=== PATIENT | female | born 1955 | race Two or more races ===

== ENCOUNTER 2016-09-28 13:51 | Emergency (ER) | payer MEDICARE, MEDICAID ==
[~2016-09-28] VITALS: Ht 160 cm; Wt 71.7 kg
[~2016-09-28 13:51] MED LIST: ASPIRIN81 MG ORAL; ATENOLOL25 MG ORAL; CILOSTAZOL100 MG PO; CIPRO500 MG PO; CRESTOR40 MG ORAL; FOSAMAX70 MG ORAL; INVEGA6 MG PO; LEVOTHYROXINE100 MCG ORAL; LISINOPRIL2.5 MG ORAL; LYRICA50 MG ORAL; NOVOLOG100 UNIT/3 SUBQ; OMEPRAZOLE20 M2 ORAL; PAMELOR25 MG ORAL; SERTRALINE HCL25 MG ORAL; TAMIFLU75 MG ORAL; TRIFLUOPERAZINE5 MG PO; VENLAFAXINE HCL75 MG ORAL; XANAX1 MG ORAL; compression stocking
[2016-09-28] MEDS ORDERED: Tylenol #3 tab (300mg/30mg) ORAL ONE (15:15)
[2016-09-28] MEDS ORDERED: ACETAMINOPHEN-1 EAC1 ORAL (15:40)
[2016-09-28 15:43] VITALS: BP 119/70
--- NOTE | 2016-09-28 15:55 | Emergency Room Report ---
History of Present Illness General Chief Complaint: Upper Extremity Injury Source: Patient Present Illness HPI 60-year-old female presents to ED complaining of left wrist pain and swelling. States 2 days ago she had a mechanical trip and fall where she landed on her outstretched left hand. Denies any other injuries. Notes pain and swelling to the left wrist since. 10 out of 10, throbbing, nonradiating. No other aggravating relieving factors. Denies any other associated symptoms Allergies: Coded Allergies: No Known Allergies (Unverified , 04/23/14) Patient History Past Medical History: DM, CVA/TIA Past Surgical History: none Pertinent Family History: none Social History: Denies: alcohol use, drug use, smoking Now: No Immunizations: UTD Reviewed Nursing Documentation: PMH: Agreed, PSxH: Agreed Nursing Documentation-PMH Hx Cardiac Problems: Yes - High cholesterol Hx Hypertension: Yes Hx Pacemaker: No Hx Asthma: No Hx COPD: No Hx Diabetes: Yes Hx Cancer: No Hx Cerebrovascular Accident: Yes - TIA 2004 & 2009 Hx Seizures: No Review of Systems All Other Systems: negative except mentioned in HPI Physical Exam Vital Signs Date Time Temp Pulse Resp B/P Pulse Ox O2 Delivery O2 Flow Rate FiO2 09/28/16 14:02 98.2 122 15 92/51 99 Room Air Sp02 EP Interpretation: reviewed, normal General Appearance: no apparent distress, alert, GCS 15, non-toxic Head: normocephalic Eyes: bilateral eye PERRL, bilateral eye normal inspection ENT: normal ENT inspection Neck: normal inspection Respiratory: normal inspection Cardiovascular #1: normal inspection Gastrointestinal: normal inspection Rectal: deferred Genitourinary: no CVA tenderness Musculoskeletal: swelling - L wrist. TTP Neurologic: alert, oriented x3, responsive, motor strength/tone normal, sensory intact, speech normal Psychiatric: normal inspection Skin: normal inspection Lymphatic: normal inspection Procedures Splinting Splinting : Consent: Verbal Pre-Made Type: velcro Splint: thumb spica Pre-Proc Neuro Vasc Exam: normal Post-Proc Neuro Vasc Exam: normal Patient Tolerated: Well Complications: None Medical Decision Making Diagnostic Impression: Primary Impression: Hand fracture, left Qualified Codes: S62.92XA - Unspecified fracture of left wrist and hand, initial encounter for closed fracture ER Course [facility] 60-year-old F presents to ED complaining of L hand pain s/p fall Differential diagnoses include: Fracture, dislocation, sprain, contusion Clinical course Patient placed on stretcher. After initial history and physical, I ordered pain medications and Xrays of L hand, wrist Xrays prelim read shows fx trapezium. no wrist fx. no dislocation placed in thumb spica. on reassessment pain is improved Diagnosis - hand fracture Stable and discharged to home with prescription for Tylenol #3. apply ice, keep elevated. Followup with PMD. Return to ED if symptoms recur or worsen Other X-Ray Diagnostic Results X-Ray ordered: L hand, L wrist # of Views/Limited Vs Complete: 2 View, 3 View EP Interpretation: Yes Interpretation: no dislocation, other - fracture trapezium L hand. L wrist - no fx, no dislocation, no soft tissue swelling Indication: Swelling Impression: Other - fracture Interpreting ER Provider: Pablo Torres MD Last Vital Signs Date Time Temp Pulse Resp B/P Pulse Ox O2 Delivery O2 Flow Rate FiO2 09/28/16 15:43 97.8 106 14 119/70 96 Room Air Status: improved Disposition: HOME, SELF-CARE Condition: Stable Scripts Acetaminophen With Codeine (T#3) (TYLENOL #3 TAB*) Y Tab 1 TAB ORAL Q8H Y for For Pain, #20 TAB Prov: PABLO TORRES M.D. 09/28/16 Patient Instructions: Wrist Fracture, [id number] PABLO TORRES M.D. Sep 28, 2016 15:55
--- NOTE | 2016-09-28 17:44 | Diagnostic Imaging Report ---
Indication: PAIN Technique: 3 views hand Comparison: none Findings: No acute fractures. No dislocations. The joint spaces are preserved. A lucency with surrounding sclerotic rim is seen within the distal ulna. This is well-defined. There are degenerative changes of the lateral intercarpal joint Impression: No acute bony trauma Well-defined lucency with surrounding sclerotic rim in the distal ulna, presumably benign Degenerative changes of the lateral intercarpal joint
== END 2016-09-28 15:43 | disposition home or self-care (01) ==
LOC: EMR 14:13
DX: S62.92XA Unspecified fracture of left hand, initial encounter for closed fracture (principal); E11.9 Type 2 diabetes mellitus without complications; I10 Essential (primary) hypertension; E78.00 Pure hypercholesterolemia, unspecified; Z86.73 Personal history of transient ischemic attack (TIA), and cerebral infarction without residual deficits; W01.0XXA Fall on same level from slipping, tripping and stumbling without subsequent striking against object, initial encounter; Y92.9 Unspecified place or not applicable
CPT/HCPCS: 29280; 99283

== ENCOUNTER 2016-10-01 12:26 | Emergency (ER) | payer MEDICARE, MEDICAID ==
[~2016-10-01] VITALS: Ht 167.6 cm; Wt 63.5 kg
[~2016-10-01 12:26] MED LIST changes: +ACETAMINOPHEN-1 EAC1 ORAL
[2016-10-01 12:46] VITALS: BP 102/60
[2016-10-01 13:31] LABS: BASOPHILS % (AUTO) 1.1 % (0.0-2.0); EOSINOPHILS % (AUTO) 1.4 % (0.0-3.0); LYMPHOCYTES % (AUTO) 25.5 % (20.0-45.0); MEAN CORPUSCULAR HEMOGLOBIN 29.6 PG (27.0-31.0); MEAN CORPUSCULAR HGB CONC 32.3 G/DL (32.0-36.0); MEAN CORPUSCULAR VOLUME 92 FL (80-99); MEAN PLATELET VOLUME 6.5 FL (6.5-10.1); MONOCYTES % (AUTO) 5.5 % (1.0-10.0); NEUTROPHILS % (AUTO) 66.6 % (45.0-75.0); PLATELET COUNT 272 K/UL (150-450); RED BLOOD COUNT 3.76 M/UL (4.20-5.40); RED CELL DISTRIBUTION WIDTH 13.1 % (11.6-14.8)
[2016-10-01 13:43] LABS: INR 0.9 (0.9-1.1); PROTHROMBIN TIME 9.4 SEC (9.30-11.50)
[2016-10-01 13:48] LABS: CALCIUM 10.3 mg/dL (8.6-10.2); CREATININE 1.2 mg/dL (0.5-0.9); GLOMERULAR FILTRATION RATE 45.9 mL/min (>60); POTASSIUM 4.1 mEQ/L (3.4-4.9); TOTAL PROTEIN 7.2 g/dL (6.6-8.7)
[2016-10-01 14:04] LABS: APPEARANCE,URINE CLEAR; KETONES,URINE NEGATIVE (NEGATIVE); LEUKOCYTE ESTERASE ,URINE NEGATIVE (NEGATIVE); NITRITE,URINE NEGATIVE (NEGATIVE); PH,URINE 6 (4.5-8.0); PROTEIN,URINE NEGATIVE (NEGATIVE); UROBILINOGEN,URINE NORMAL MG/DL (0.0-1.0)
[2016-10-01 14:55] VITALS: BP 92/56
--- NOTE | 2016-10-01 14:55 | Diagnostic Imaging Report ---
Indication: Syncope Technique: Continuous helical CT scanning of the head was performed without intravenous contrast material. Axial and coronal 5 mm sections were generated. Radiation dose was minimized using automated exposure control Dose: Total Dose Length Product - DLP [address] Dose Index - CTDIvol(s) 70.38 mGy. Comparison: None Findings: The ventricular system is normal in size and configuration. There is no shift of midline structures. No abnormal extra-axial fluid collections are noted. There is no evidence of intracerebral bleeding. No other abnormal high or low density areas are noted within the brain. Visualized orbits and sinuses are unremarkable. Intact calvarium Impression: Normal CT scan of the head without contrast material. The CT scanner at [facility] is accredited by the [employer] and the scans are performed using protocols designed to limit radiation exposure to as low as reasonably achievable to attain images of sufficient resolution adequate for diagnostic evaluation.
[2016-10-01 14:59] LABS: TROPONIN I < 0.30 ng/mL (<=0.30)
[2016-10-01 15:55] VITALS: BP 104/59
--- NOTE | 2016-10-01 15:59 | Emergency Room Report ---
History of Present Illness General Chief Complaint: Syncope Source: Patient, Family Member, Medical Record Present Illness HPI Patient states that she has been feeling dizzy for a few days. She went to her doctor's office and had a syncopal event. She was by her paramedics for further evaluation. Patient complains of dizziness with movement of her head. She denies any nausea vomiting diarrhea chills. Symptoms noted to be severe. No other modifying factors. No other associated signs and symptoms. No other complaints were noted. Allergies: Coded Allergies: No Known Allergies (Unverified , 04/23/14) Patient History Past Medical History: DM, HTN, CVA/TIA, other - High cholesterol Past Surgical History: none Pertinent Family History: none Social History: Denies: alcohol use, drug use, smoking Reviewed Nursing Documentation: PMH: Agreed, PSxH: Agreed Nursing Documentation-PMH Past Medical History Deferred: Pt Cognitively Impaired Past Medical History: No History, Except For Hx Cardiac Problems: Yes - High cholesterol Hx Hypertension: Yes Hx Pacemaker: No Hx Asthma: No Hx COPD: No Hx Diabetes: Yes Hx Cancer: No Hx Cerebrovascular Accident: Yes - TIA 2004 & 2009 Hx Seizures: No Review of Systems All Other Systems: negative except mentioned in HPI Physical Exam Vital Signs Date Time Temp Pulse Resp B/P Pulse Ox O2 Delivery O2 Flow Rate FiO2 10/01/16 12:23 98.6 90 16 100/64 95 Room Air Sp02 EP Interpretation: reviewed, normal General Appearance: normal inspection, alert, mild distress - appears weak Head: atraumatic Eyes: bilateral eye normal inspection ENT: normal ENT inspection, hearing grossly normal, normal voice Neck: normal inspection, full range of motion, supple, no bony tend Respiratory: normal inspection, lungs clear, normal breath sounds, no respiratory distress, no retraction, no wheezing Cardiovascular #1: regular rate, rhythm, no edema Gastrointestinal: normal inspection, normal bowel sounds, non tender, soft, no guarding, no hernia Genitourinary: no CVA tenderness Musculoskeletal: normal inspection, back normal, normal range of motion Neurologic: normal inspection, alert, responsive, speech normal Psychiatric: normal inspection, judgement/insight normal, mood/affect normal Skin: normal inspection, normal color, no rash Medical Decision Making Diagnostic Impression: Primary Impression: Hypotension Additional Impressions: Syncope Vertigo ER Course Patient presents emergency department today complaining of low blood pressure dizziness and syncope. Differential considerations include dehydration, electrolyte abnormality, acute [place], acute electrolyte abnormality, acute arrhythmia just to name a few. Given the severity of the patient's presentation I felt this is a highly complex patient. This patient required extensive workup. Given patient's presentation I felt the patient required mission. Patient's blood pressure improved significantly with fluids. Case was discussed with Dr. Calderon it was felt the patient was stable transferred patient will be transferred via paramedics. Labs Test 10/01/16 13:15 10/01/16 13:35 White Blood Count 9.0 K/UL (4.8-10.8) Red Blood Count 3.76 M/UL (4.20-5.40) Hemoglobin 11.1 G/DL (12.0-16.0) Hematocrit 34.4 % (37.0-47.0) Mean Corpuscular Volume 92 FL (80-99) Mean Corpuscular Hemoglobin 29.6 PG (27.0-31.0) Mean Corpuscular Hemoglobin Concent 32.3 G/DL (32.0-36.0) Red Cell Distribution Width 13.1 % (11.6-14.8) Platelet Count 272 K/UL (150-450) Mean Platelet Volume 6.5 FL (6.5-10.1) Neutrophils (%) (Auto) 66.6 % (45.0-75.0) Lymphocytes (%) (Auto) 25.5 % (20.0-45.0) Monocytes (%) (Auto) 5.5 % (1.0-10.0) Eosinophils (%) (Auto) 1.4 % (0.0-3.0) Basophils (%) (Auto) 1.1 % (0.0-2.0) Prothrombin Time 9.4 SEC (9.30-11.50) Prothromb Time International Ratio 0.9 (0.9-1.1) Activated Partial Thromboplast Time 24 SEC (23-33) Sodium Level 136 mEQ/L (135-145) Potassium Level 4.1 mEQ/L (3.4-4.9) Chloride Level 92 mEQ/L (98-107) Carbon Dioxide Level 26 mEQ/L (20-30) Anion Gap 18 (5-15) Blood Urea Nitrogen 20 mg/dL (7-23) Creatinine 1.2 mg/dL (0.5-0.9) Estimat Glomerular Filtration Rate 45.9 mL/min (>60) Glucose Level 192 mg/dL (74-106) Calcium Level 10.3 mg/dL (8.6-10.2) Total Bilirubin 0.2 mg/dL (0.0-1.2) Aspartate Amino Transf (AST/SGOT) 163 U/L (5-40) Alanine Aminotransferase (ALT/SGPT) 168 U/L (3-33) Alkaline Phosphatase 327 U/L (35-104) Total Creatine Kinase 158 U/L (26-140) Troponin I < 0.30 ng/mL (<=0.30) Pro-B-Type Natriuretic Peptide 669 pg/mL (0-125) Total Protein 7.2 g/dL (6.6-8.7) Albumin 3.7 g/dL (3.5-5.2) Globulin 3.5 g/dL Albumin/Globulin Ratio 1.0 (1.0-2.7) Urine Color Pale yellow Urine Appearance Clear Urine pH 6 (4.5-8.0) Urine Specific Soldier 1.010 (1.005-1.035) Urine Protein Negative (NEGATIVE) Urine Glucose (UA) 4+ (NEGATIVE) Urine Ketones Negative (NEGATIVE) Urine Occult Blood Negative (NEGATIVE) Urine Nitrite Negative (NEGATIVE) Urine Bilirubin Negative (NEGATIVE) Urine Urobilinogen Normal MG/DL (0.0-1.0) Urine Leukocyte Esterase Negative (NEGATIVE) EKG Diagnostic Results Rate: normal Rhythm: NSR ST Segments: no acute changes Rhythm Strip Diag. Results EP Interpretation: yes Rate: 70 Rhythm: NSR, no PVC's, no ectopy Chest X-Ray Diagnostic Results Chest X-Ray Diagnostic Results : Chest X-Ray Ordered: Yes # of Views/Limited/Complete: 1 View EP Interpretation: Yes Interpretation: no consolidation, no effusion, no pneumothorax, no acute cardiopulmonary disease Indication: Shortness of Breath Impression: No acute disease Interpreting ER Provider: Electronically signed by Sandeep Amador MD Last Vital Signs Date Time Temp Pulse Resp B/P Pulse Ox O2 Delivery O2 Flow Rate FiO2 10/01/16 15:55 75 16 104/59 97 Room Air 10/01/16 12:46 98.6 Status: improved Disposition: XFER SHT-TRM HOSP Condition: Serious Referrals: [facility],REFERRING (PCP) SANDEEP AMADOR M.D. Oct 01, 2016 15:59
[2016-10-01 16:01] VITALS: BP 104/59
[2016-10-01 16:22] LABS: CKMB 3.1 ng/mL (< 3.8)
--- NOTE | 2016-10-02 08:24 | Diagnostic Imaging Report ---
Indication: COUGH, chest pain Technique: One view of the chest Comparison: 08/09/2014 Findings: Lungs and pleural spaces are clear. Normal cardiomediastinal silhouette. No significant change Impression: No acute process
--- NOTE | 2016-10-02 18:45 | Cardiology Report ---
APPROVED REPORT EKG Measurement Heart [id number] [place] 140P25 [id number] Normal sinus rhythm Normal ECG
== END 2016-10-01 16:23 | disposition short-term general hospital (02) ==
LOC: EDBD 12:26 → EMR 14:10
DX: I95.9 Hypotension, unspecified (principal); R55 Syncope and collapse; R42 Dizziness and giddiness; E11.9 Type 2 diabetes mellitus without complications; Z86.73 Personal history of transient ischemic attack (TIA), and cerebral infarction without residual deficits; I10 Essential (primary) hypertension
CPT/HCPCS: 36415; 70450; 71010; 80053; 81003; 82550; 82553; 83880; 84484; 85025; 85610; 85730; 93005; 99285